=== PATIENT | female | born 1985 | race Caucasian/White ===

== ENCOUNTER 2023-03-18 21:09 | Emergency (ER) | payer SELFPAY ==
[2023-03-18] MEDS ORDERED: LORazepam 2 MG/ML VIAL ONE (21:55)
[2023-03-18] MEDS ORDERED: NA CHLORIDE 0.9% 1,000 ML ONE (21:55)
[2023-03-18 21:57] LABS: Specific Gravity < 1.005 (1.005-1.030); Urine Bacteria None Seen /HPF (<20); Urine Bilirubin NEGATIVE (Negative); Urine Blood Negative (Negative); Urine Clarity Clear (Clear); Urine Color Colorless (Yellow); Urine Glucose NEGATIVE (Negative); Urine Protein NEGATIVE (Negative); Urine RBC <5 /HPF (None Seen); Urine Urobilinogen Normal (Normal)
[2023-03-18 21:59] LABS: Specific Gravity < 1.005 (1.005-1.030)
[2023-03-18 22:15] LABS: Hematocrit 37.4 % (36.0-45.0); Lymphocytes % 25.7 % (15.3-44.8); MPV 7.7 fL (7.6-11.3)
[2023-03-18 22:26] LABS: ALT/SGPT 18 U/L (13-56); AST/SGOT 11 U/L (15-37); Albumin 4.1 g/dL (3.4-5.0); Alkaline Phosphatase 40 U/L (45-117); BUN Blood Urea Nitrogen 11 mg/dL (7-18); Bicarbonate 26 mEq/L (21-32); Bilirubin Total 0.2 mg/dL (0.2-1.0); Glomerular Filtration Rate 115 ml/min (=/>90); Glucose Level 124 mg/dL (74-106); Magnesium 2.1 mg/dL (1.6-2.4); Protein, Total 7.5 g/dL (6.4-8.2); Sodium Level 137 mEq/L (136-145)
--- NOTE | 2023-03-18 22:33 | RAD REPORT ---
EXAM DESCRIPTION: CT - Head Brain Wo Cont - 03/18/2023 10:12 pm CLINICAL HISTORY: Dizziness COMPARISON: None TECHNIQUE: Computed axial tomography of the head was obtained. IV contrast was not requested. All CT scans are performed using dose optimization technique as appropriate and may include automated exposure control or mA/KV adjustment according to patient size. FINDINGS: An intracranial bleed is not seen The ventricles are normal in caliber No extra-axial fluid collection is noted. 1 centimeter low-density area within the nallely Fluid within the sinuses/ mastoids is not seen. IMPRESSION: 1 centimeter low-density area within the nallely may represent an infarct which could be ac grayling or chronic. Another consideration is that this is beam hardening artifact. MRI is recommended
[2023-03-18 22:35] LABS: Bilirubin Direct < 0.1 mg/dL (0-0.2); Bilirubin Indirect, Calculated ND mg/dL (0.2-0.8); Troponin High Sensitivity < 3.0 pg/mL (<58.9)
--- NOTE | 2023-03-18 23:14 | EDPHYS ---
Physician Documentation [facility] Name: Hilda Blake Age: 37 yrs Sex: Female : 1985 Arrival Date: 03/18/2023 Time: 21:09 Bed 14 Private MD: ED Physician Etienne Vargas HPI: 03/18 22:14 This 37 yrs old Female presents to ER via Ambulatory with complaints of Dizziness, sb4 General Weakness. 22:14 The patient presents with feeling faint, lightheadedness, feeling off balance. Onset: sb4 The symptoms/episode began/occurred just prior to arrival. Associated signs and symptoms: Pertinent positives: near-syncope, numbness, tingling. The patient has not experienced similar symptoms in the past. 37 year old female with no past medical history who is here on vacation presents with dizziness. She states that she has had a relaxing day with her family, has not been stressed at all when all of sudden this evening she started feeling badly. She reports feeling a little drunk but has not had any alcohol today. She states her lips went numb and her right arm felt tingling. She reports feeling like she was going to pass out, but did not. Historical: - Allergies: 21:24 Zithromax (Vomiting, Upset stomach); cm10 21:24 Codeine (Upset stomach); cm10 - Home Meds: 21:24 None [Active]; cm10 - PMHx: 21:24 None; cm10 - PSHx: 21:24 Cholecystectomy; cm10 - Immunization history:: Adult Immunizations up to date. - Social history:: Smoking status: Patient denies any tobacco usage or history of. ROS: 22:14 Constitutional: Negative for fever, chills, and weight loss, Eyes: Negative for injury, sb4 pain, redness, and discharge, ENT: Negative for injury, pain, and discharge, Cardiovascular: Negative for chest pain, palpitations, and edema, Respiratory: Negative for shortness of breath, cough, wheezing, and pleuritic chest pain, Abdomen/GI: Negative for abdominal pain, nausea, vomiting, diarrhea, and constipation, MS/Extremity: Negative for injury and deformity, Skin: Negative for injury, rash, and discoloration. 22:14 Neuro: Positive for dizziness, numbness, near syncope, tingling, Negative for altered mental status, gait disturbance, hearing loss, loss of consciousness, seizure activity, speech changes, tinnitus, tremor. 22:14 Psych: Positive for anxiety. Exam: 22:14 Constitutional: This is a well developed, well nourished patient who is awake, alert, sb4 and in no acute distress. Head/Face: Normocephalic, atraumatic. Eyes: Extra-ocular motions intact. Periorbital areas with no swelling, redness, or edema. ENT: Mucous membranes moist. Cardiovascular: Regular rate and rhythm with a normal S1 and S2. Respiratory: Lungs have equal breath sounds bilaterally, clear to auscultation and percussion. No rales, rhonchi or wheezes noted. No increased work of breathing, no retractions or nasal flaring. Abdomen/GI: Soft, non-tender, no distension. Skin: Warm, dry with normal turgor. Normal color with no rashes, no lesions, and no evidence of cellulitis. MS/ Extremity: Pulses equal, no cyanosis. Neurovascular intact. Full, normal range of motion. Neuro: Awake and alert, GCS 15, oriented to person, place, time, and situation. Cranial nerves II-XII grossly intact. Motor strength 5/5 in all extremities. Sensory grossly intact. Cerebellar exam normal. Normal gait. Psych: Awake, alert, with orientation to person, place and time. Behavior, mood, and affect are within normal limits. Vital Signs: 21:23 BP 122 / 85; Pulse 99; Resp 16; Temp 98.4(O); Pulse Ox 100% on R/A; Weight 72.57 kg cm10 (R); Height 5 ft. 5 in. (R); Pain 0/10; 23:00 BP 114 / 78; Pulse 90; Resp 14; Pulse Ox 100% on R/A; ll3 21:23 Body Mass Index 26.63 (72.57 kg, 165.1 cm) cm10 21:23 Pain Scale: Adult cm10 MDM: 21:29 Patient medically screened. sb4 22:14 Differential diagnosis: cardiac arrhythmia, CVA, idiopathic dizziness, near-syncope, sb4 , TIA, vertigo. 23:15 Data reviewed: vital signs, nurses notes, lab test result(s), EKG, radiologic studies, sb4 CT scan, I have discussed the patient's presentation/case with the attending Emergency Department Physician; and as a result, I will discharge patient. Consideration of Admission/Observation Escalation of care including admission/observation considered. Historians other than the Patient: Spouse/Significant Other: . Counseling: I had a detailed discussion with the patient and/or guardian regarding: the historical points, exam findings, and any diagnostic results supporting the discharge/admit diagnosis, the presence of at least one elevated blood pressure reading (>120/80) during this emergency department visit, lab results, radiology results, the need for outpatient follow up, a neurologist, to return to the emergency department if symptoms worsen or persist or if there are any questions or concerns that arise at home. 03/18 21:37 Order name: Basic Metabolic Panel; Complete Time: 22:35 sb4 03/18 21:37 Order name: CBC with Diff; Complete Time: 22:35 sb4 03/18 21:37 Order name: D-Dimer; Complete Time: 22:49 sb4 03/18 21:37 Order name: LFT's; Complete Time: 22:35 sb4 03/18 21:37 Order name: Magnesium; Complete Time: 22:35 sb4 03/18 21:37 Order name: Troponin HS; Complete Time: 22:35 sb4 03/18 21:37 Order name: TSH; Complete Time: 22:35 sb4 03/18 21:37 Order name: Test, Urine; Complete Time: 22:17 sb4 03/18 21:37 Order name: UAM; Complete Time: 22:17 sb4 03/18 21:37 Order name: Head Brain Wo Cont CT; Complete Time: 22:35 sb4 03/18 21:37 Order name: EKG; Complete Time: 21:37 sb4 03/18 21:37 Order name: Cardiac monitoring; Complete Time: 21:49 sb4 03/18 21:37 Order name: EKG - Nurse/Tech; Complete Time: 21:49 sb4 03/18 21:37 Order name: IV Saline Lock; Complete Time: 21:49 sb4 03/18 21:37 Order name: Labs collected and sent; Complete Time: 21:49 sb4 03/18 21:37 Order name: O2 Per Protocol; Complete Time: 21:49 sb4 03/18 21:37 Order name: O2 Sat Monitoring; Complete Time: 21:49 sb4 EC:33 Rate is 90 beats/min. Rhythm is regular, Normal Sinus Rhythm. QRS [place] is Normal. [place] sb4 interval is normal at 120 msec. QRS interval is normal at 82 msec. QT interval is normal at 362 msec. No Q waves. T waves are Normal. Clinical impression: NSR w/ Non-specific ST/T Changes. Interpreted by me. Reviewed by me. Administered Medications: 21:56 CANCELLED (Patient Refused): Ativan IVP 0.5 mg IVP once ll3 22:05 Drug: NS 0.9% IV 1000 ml Route: IV; Rate: 1 bolus; Site: right antecubital; ll3 23:31 Follow up: Response: No adverse reaction; IV Status: Completed infusion; IV Intake: ll3 1000ml 23:31 Drug: Potassium Chloride PO 40 mEq Route: PO; ll3 23:31 Follow up: Response: Medication administered at discharge. ll3 Disposition: 03/19 00:09 Co-signature as Attending Physician, Etienne Vargas MD I agree with the assessment sp4 and plan of care. I reviewed the patient's care provided by the Advanced Practice Provider and agree with the diagnosis and treatment plan. Disposition Summary: 03/18/23 23:14 Discharge Ordered Location: Home sb4 Problem: new sb4 Symptoms: have improved sb4 Condition: Stable sb4 Diagnosis - Anxiety Attack sb4 - Paresthesia of skin sb4 Followup: sb4 - With: Private Physician - When: 1 week - Reason: Further diagnostic work-up, Recheck today's complaints, Re-evaluation by your physician Discharge Instructions: - Discharge Summary Sheet sb4 - Paresthesia, [id number] sb4 - Hypokalemia sb4 - Dizziness, [id number] sb4 - Managing Anxiety, Adult sb4 Forms: - Medication Reconciliation Form sb4 - Thank You Letter sb4 - Antibiotic Education sb4 - Prescription Opioid Use sb4 - [email or web address] sb4 Signatures: Dispatcher [employer] Sotero King RN RN ll3 Chastity Ramsey, REY PAHira sb4 Etienne Vargas MD MD sp4 Nida Handy RN RN cm10 Corrections: (The following items were deleted from the chart) 03/18 21:56 21:37 Ativan IVP 0.5 mg IVP once ordered. sb4 ll3
--- NOTE | 2023-03-18 23:14 | ER ---
Nurse's Notes [facility] Name: Hilda Blake Age: 37 yrs Sex: Female : 1985 Arrival Date: 03/18/2023 Time: 21:09 Bed 14 Private MD: Diagnosis: Anxiety Attack;Paresthesia of skin Presentation: 03/18 21:23 Chief complaint: Patient states: generalized weakness and dizziness onset at 1800. pt cm10 states that this got worse 30 minutes ago. Coronavirus screen: Vaccine status: Patient reports receiving the 2nd dose of the covid vaccine. Client denies travel out of the [place] in the last 14 days. At this time, the client does not indicate any symptoms associated with coronavirus-19. Ebola Screen: Patient denies travel to an Ebola-affected area in the 21 days before illness onset. No symptoms or risks identified at this time. Initial Sepsis Screen: Does the patient meet any 2 criteria? HR > 90 bpm. Does the patient have a suspected source of infection? No. Patient's initial sepsis screen is negative. Risk Assessment: Do you want to hurt yourself or someone else? Patient reports no desire to harm self or others. Onset of symptoms was March 18, 2023. 21:23 Method Of Arrival: Ambulatory cm10 21:23 Acuity: ALMITA 3 cm10 Triage Assessment: 21:25 General: Appears in no apparent distress. comfortable, Behavior is calm, cooperative. cm10 Pain: Denies pain. Historical: - Allergies: 21:24 Zithromax (Vomiting, Upset stomach); cm10 21:24 Codeine (Upset stomach); cm10 - Home Meds: 21:24 None [Active]; cm10 - PMHx: 21:24 None; cm10 - PSHx: 21:24 Cholecystectomy; cm10 - Immunization history:: Adult Immunizations up to date. - Social history:: Smoking status: Patient denies any tobacco usage or history of. Screenin:[facility] ED Fall Risk Assessment (Adult) History of falling in the last 3 months, ll3 including since admission No falls in past 3 months (0 pts) Confusion or Disorientation No (0 pts) Intoxicated or Sedated No (0 pts) Impaired Gait Yes (1 pt) Mobility Assist Device Used No (0 pt) Altered Elimination No (0 pt) Score/Fall Risk Level 0 - 2 = Low Risk Oriented to surroundings, Maintained a safe environment, Educated pt \T\ family on fall prevention, incl call for assistance when getting out of bed. Abuse screen: Denies threats or abuse. Denies injuries from another. Nutritional screening: No deficits noted. Tuberculosis screening: No symptoms or risk factors identified. Assessment: 21:37 General: Appears uncomfortable, Behavior is cooperative, anxious. Neuro: Level of ll3 Consciousness is awake, alert, obeys commands, Oriented to person, place, time, situation, Reports Dizziness and tingling to right arm since 1800. Cardiovascular: Patient's skin is warm and dry. Respiratory: Respiratory effort is even, unlabored, Respiratory pattern is regular, symmetrical. Derm: Skin is pink, warm \T\ dry. Vital Signs: 21:23 BP 122 / 85; Pulse 99; Resp 16; Temp 98.4(O); Pulse Ox 100% on R/A; Weight 72.57 kg cm10 (R); Height 5 ft. 5 in. (R); Pain 0/10; 23:00 BP 114 / 78; Pulse 90; Resp 14; Pulse Ox 100% on R/A; ll3 21:23 Body Mass Index 26.63 (72.57 kg, 165.1 cm) cm10 21:23 Pain Scale: Adult cm10 ED Course: 21:10 Patient arrived in ED. ja2 21:21 Chastity Ramsey [facility] sb4 21:21 Etienne Vargas MD is Attending Physician. sb4 21:24 Triage completed. cm10 21:25 Arm band placed on Patient placed in an exam room, on a stretcher. cm10 21:37 Patient has correct armband on for positive identification. Bed in low position. Call ll3 light in reach. Side rails up X 1. Adult w/ patient. 21:50 Inserted saline lock: 20 gauge in right antecubital area, using aseptic technique. bc6 22:14 Head Brain Wo Cont CT In Process Unspecified. EDMS 23:31 No provider procedures requiring assistance completed. IV discontinued, intact, ll3 bleeding controlled, No redness/swelling at site. Pressure dressing applied. Administered Medications: 21:56 CANCELLED (Patient Refused): Ativan IVP 0.5 mg IVP once ll3 22:05 Drug: NS 0.9% IV 1000 ml Route: IV; Rate: 1 bolus; Site: right antecubital; ll3 23:31 Follow up: Response: No adverse reaction; IV Status: Completed infusion; IV Intake: ll3 1000ml 23:31 Drug: Potassium Chloride PO 40 mEq Route: PO; ll3 23:31 Follow up: Response: Medication administered at discharge. ll3 Medication: 21:39 VIS not applicable for this client. ll3 Intake: 23:31 IV: 1000ml; Total: 1000ml. ll3 Outcome: 23:14 Discharge ordered by MD. sb4 23:31 Discharged to home ambulatory, with family, with significant other. ll3 23:31 Condition: stable 23:31 Discharge instructions given to patient, significant other, Instructed on discharge instructions, follow up and referral plans. Demonstrated understanding of instructions, follow-up care. 23:34 Patient left the ED. ll3 Signatures: Dispatcher [employer] EDMS Jillian Alvarado2 Sotero Jesus, RN RN ll3 Chastity Ramsey PAFaribaC PA-C sb4 Suni Manley 6 Nida Handy, RN RN cm10 Corrections: (The following items were deleted from the chart) 23:34 23:32 BP 114 / 78; Pulse 90bpm; Resp 14bpm; Pulse Ox 100% RA; ll3 ll3
[2023-03-18] MEDS ORDERED: POTASSIUM CL SA 10 MEQ TAB PO ONE (23:34)
[2023-03-18 23:50] VITALS: BP 114/78; O2SAT 100
[2023-03-18 23:52] VITALS: TEMP 98.4
--- NOTE | 2023-03-19 12:14 | EKG ---
Test Date: 2023-03-18 Test Time: 22:00:11 Integrated Program Teacher: BIANCA MEASUREMENT RESULTS: Intervals: Rate: 90 MO: 120 QRSD: 82 QT: 362 QTc: 442 [place]: P: 63 MO: 120 QRS: 67 T: 39 INTERPRETIVE STATEMENTS: Normal sinus rhythm Nonspecific ST and T wave abnormality Abnormal ECG No previous ECG available for comparison Electronically Signed On 03-19-23 12:12:31 CDT by Surya Tapia
== END 2023-03-18 23:34 | disposition home or self-care (01) ==
LOC: ER 21:09
DX: F41.0 Panic disorder [episodic paroxysmal anxiety] (principal)
CPT/HCPCS: 36415; 70450; 80048; 80076; 81001; 81025; 83735; 84443; 84484; 85025; 85379; 93005; 96360; 99284; J7030